=== PATIENT | male | born 1995 | race African-American/Black ===

== ENCOUNTER 2022-07-22 05:13 | Emergency (ER) | payer MEDICAID ==
[~2022-07-22] VITALS: Ht 165.1 cm; Wt 61.0 kg
[2022-07-22 05:20] VITALS: BP 142/83
[2022-07-22] MEDS ORDERED: HYDR26CR2 TP (06:37)
[2022-07-22] MEDS ORDERED: POLY17PO3 PO (06:37)
== END 2022-07-22 07:27 | disposition home or self-care (01) ==
LOC: ER 05:29
DX: K64.9 Unspecified hemorrhoids (principal); K59.00 Constipation, unspecified; Z98.890 Other specified postprocedural states
CPT/HCPCS: 99282